=== PATIENT | male | born 1960 | race Caucasian/White ===

== ENCOUNTER 2023-03-31 19:57 | Emergency (ER) | payer OTHER, SELFPAY ==
--- NOTE | 2023-03-31 19:58 | XRR_ITS ---
PROCEDURE INFORMATION: Exam: XR Chest Exam date and time: 03/31/2023 8:22 PM Age: 63 years old Clinical indication: Pain; Chest pressure; Additional info: Cbc TECHNIQUE: Imaging protocol: Radiologic exam of the chest. Views: 1 view. COMPARISON: No relevant prior studies available. FINDINGS: Lungs: Lungs are clear bilaterally. Pleural spaces: No pleural effusion. No pneumothorax. Heart/Mediastinum: The cardiac silhouette is mildly enlarged. Mediastinal contours are unremarkable. Vasculature: Vascular calcifications in the aorta. Bones/joints: Unremarkable for age. XR/XR chest 1V portable [id number] IMPRESSION: 1. No acute cardiopulmonary process. 2. Incidental/nonacute findings are listed in the report.
--- NOTE | 2023-03-31 19:59 | ECG_ITS ---
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 Measurements Intervals [place] Rate: 63 P: 44 MT: 122 QRS: 47 QRSD: 110 T: 55 QT: 423 QTc: 436 Interpretive Statements SINUS RHYTHM No previous ECG available for comparison Electronically Signed On 03-31-2023 20:36:55 CDT by Cal Zhang M.D. [id number]
[2023-03-31 20:10] VITALS: BP 135/86; PULSE 64; RESP 18; TEMP 37.1; O2SAT 99; BMI 28.5
--- NOTE | 2023-03-31 20:28 | W.ED.CHESTPA ---
HPI - Chest Pain General: Chief Complaint: Chest Pain Stated Complaint: CHEST PAIN Time Seen by Provider: 03/31/23 20:09 Source: patient and EMS Mode of arrival: EMS Limitations: no limitations History of Present Illness: 63-year-old male has extensive history of coronary artery disease he states he had a cath 3 years ago showed blockage she had no stents done at that point but he has not followed up he is a truck supervisor he states that this afternoon he started having chest pain as pressure type pain along with some shortness of breath he is having some tingling in his arms. He is given nitro in route his chest pains improved to 2 out of 10 currently. Had no vomiting no diarrhea his vital signs here are all normal he states he was hypertensive before the nitro. Associated symptoms: Reports dyspnea; Deny abdominal pain, fever(s), nausea or vomiting Review of Systems Const: Denies: fever(s) or chills Eyes: Denies: eye discomfort ENMT: Denies: throat pain or dental pain Card: Reports: chest pain Resp: Reports: dyspnea GI: Denies: abdominal pain, nausea, vomiting or diarrhea : Denies: dysuria Musc: Denies: neck pain or back pain Skin/Breast: Denies: rash Neuro: Denies: headache(s) Physical Exam Const: COMMON NORMALS: patient oriented x3 HENMT: COMMON NORMALS: normocephalic and atraumatic HEAD & SCALP: normocephalic and atraumatic Eye: COMMON NORMALS: Equal, round and reactive pupils present and EOMs intact bilaterally PUPIL: Yes Equal, round and reactive pupils present Neck/C-Spine: COMMON NORMALS: full ROM and supple Chest: COMMONS NORMALS: normal inspection of the chest and normal palpation of entire chest wall Resp: COMMON NORMALS: normal respiratory effort, No retractions, No use of accessory muscles and clear to auscultation bilaterally AUSCULTATION: clear to auscultation bilaterally Cardio: COMMON NORMALS: regular rate, regular rhythm and No murmurs present (Cardio) RATE: regular rate RHYTHM: regular rhythm GI: COMMON NORMALS: Normal to inspection, nondistended, normoactive bowel sounds present, Soft to palpation, non-tender and no masses PALPATION: Yes Soft to palpation Extremity: COMMON NORMALS: normal to inspection and full ROM Neuro: COMMON NORMALS: patient oriented x3, moves all extremities and no focal motor deficits Psych: COMMON NORMALS: mental status grossly normal, Normal thought process present and cooperative THOUGHT PROCESS: Normal thought process present Skin: COMMON NORMALS: no rashes or lesions noted and no wounds GENERAL SKIN EXAM: no rashes or lesions noted Course Vital Signs: Vital signs: Vital Signs Temperature 98.7 F 03/31/23 20:10 Pulse Rate 64 03/31/23 20:10 Respiratory Rate 18 03/31/23 20:10 Blood Pressure 135/86 03/31/23 20:10 Pulse Oximetry 99 03/31/23 20:10 Oxygen Delivery Me thod Room Air 03/31/23 20:10 MDM - Chest Pain Medical Decision Making Patient presents for chest pain his initial repeat troponin here normal his D-dimer is negative as well. States he is also eating something at a truck stop and he is having some epigastric pain after that as well and thought it could be indigestion his pain since is resolved. 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 Medical Records I reviewed the patient's medical records. Lab Data I reviewed the patient's lab results. 03/31/23 20:45 03/31/23 20:45 Radiology Impressions Chest X-Ray 03/31/23 19:58 IMPRESSION: 1. No acute cardiopulmonary process. 2. Incidental/nonacute findings are listed in the report. Laboratory Results WBC 8.12 10^3/uL (3.29-11.43) 03/31/23 20:45 RBC 4.59 10^6/uL (3.85-5.65) 03/31/23 20:45 Hgb 13.30 g/dL (11.27-16.99) 03/31/23 20:45 Hct 38.2 % (37-53) 03/31/23 20:45 MCV 83.2 fl (82-101) 03/31/23 20:45 MCH 29.0 pg (27-33) 03/31/23 20:45 MCHC 34.8 g/dL (30-55) 03/31/23 20:45 RDW 12.4 % (12.1-15.1) 03/31/23 20:45 Plt Count 201 10^3/cmm (157-399) 03/31/23 20:45 MPV 10.7 fL (7.4-10.4) H 03/31/23 20:45 Neut % (Auto) 74.8 % 03/31/23 20:45 Lymph % (Auto) 18.7 % 03/31/23 20:45 [place] % (Auto) 5.3 % 03/31/23 20:45 Eos % (Auto) 0.2 % 03/31/23 20:45 Baso % (Auto) 0.6 % 03/31/23 20:45 Neut # (Auto) 6.07 10^3/uL (1.8-7.7) 03/31/23 20:45 Lymph # (Auto) 1.5 10^3/uL (0.8-4.8) 03/31/23 20:45 [place] # (Auto) 0.4 10^3/uL (0.2-0.9) 03/31/23 20:45 Eos # (Auto) 0.0 10^3/uL (0.0-0.8) 03/31/23 20:45 Baso # (Auto) 0.1 10^3/uL (0.0-0.1) 03/31/23 20:45 Nucleated RBC % (auto) 0 % 03/31/23 20:45 Nucleated RBCs # 0.0 /100WBC 03/31/23 20:45 PT 13.30 SECONDS (12.1-14.9) 03/31/23 20:45 INR 0.98 (0.8-1.2) 03/31/23 20:45 D-Dimer <= 0.27 ug/mLFEU (0-0.59) 03/31/23 20:45 Sodium 131 mmol/L (136-145) L 03/31/23 20:45 Potassium 3.9 mmol/L (3.5-5.1) 03/31/23 20:45 Chloride 97 mmol/L (98-107) L 03/31/23 20:45 Carbon Dioxide 23 mmol/L (22-29) 03/31/23 20:45 Anion Gap 14.9 (5-19) 03/31/23 20:45 BUN 13 mg/dL (8-23) 03/31/23 20:45 Creatinine 0.8 mg/dL (0.7-1.2) 03/31/23 20:45 GFR Calculation 97.6 mL/min (90-130) 03/31/23 20:45 Glucose 104 mg/dL (65-115) 03/31/23 20:45 Calculated Osmolality 272 mOsm/kg (285-295) L 03/31/23 20:45 Calcium 8.8 mg/dL (8.5-10.5) 03/31/23 20:45 Total Bilirubin 0.8 mg/dL (0.15-1.2) 03/31/23 20:45 AST 18 U/L (0-40) 03/31/23 20:45 ALT 14 U/L (0-41) 03/31/23 20:45 Alkaline Phosphatase 91 U/L (40-130) 03/31/23 20:45 Troponin T Baseline 10 ng/L (0-15) 03/31/23 20:45 Troponin T 120 Minute 7.63 ng/L (0-15) 03/31/23 22:49 Delta Troponin T -2.37 ABS# (0-10) L 03/31/23 22:49 Total Protein 6.7 g/dL (6.6-8.7) 03/31/23 20:45 Albumin 4.4 g/dL (3.5-5.2) 03/31/23 20:45 Globulin 2.3 g/dL (1.3-4.6) 03/31/23 20:45 Lipase 18 U/L (13-60) 03/31/23 20:45 EKG Data EKG 1: I personally reviewed and interpreted this EKG as follows: EKG interpretation date: 03/31/23 EKG interpretation time: 20:30 Interpretation: nsr hr [address] or t wave abnormalities qrs 110 qtc 431 Discharge Plan Discharge Patient Disposition: Home Clinical Impression: Chest pain Condition: Stable Discharge Orders: Discharge ED (Routine); Ordered 03/31/23 Ordered By: Maryellen Plummer Discharge Diet: Advance as tolerated Discharge Activity: Resume usual activity Patient Instructions: Chest Pain (ED) Coding Level of Care Code ED Hot Room Attendant for Ashley Thomas
[2023-03-31 20:54] LABS: Basophils # 0.1 10^3/uL (0.0-0.1); Basophils % 0.6 %; Eosinophils % 0.2 %; Hematocrit 38.2 % (37-53); Lymphocytes # 1.5 10^3/uL (0.8-4.8); Lymphocytes % 18.7 %; Mean Corpuscular HGB Conc 34.8 g/dL (30-55); Mean Corpuscular Volume 83.2 fl (82-101); Mean Platelet Volume 10.7 fL (7.4-10.4); Monocytes # 0.4 10^3/uL (0.2-0.9); Monocytes % 5.3 %; Neutrophils # 6.07 10^3/uL (1.8-7.7); Neutrophils % 74.8 %; Nucleated Red Blood Cells % 0 %; Platelet Count 201 10^3/cmm (157-399); Red Blood Count 4.59 10^6/uL (3.85-5.65); Red Cell Distribution Width 12.4 % (12.1-15.1); White Blood Count 8.12 10^3/uL (3.29-11.43)
[2023-03-31 21:11] LABS: INR 0.98 (0.8-1.2)
[2023-03-31 21:14] LABS: D Dimer <= 0.27 ug/mLFEU (0-0.59)
[2023-03-31 21:17] LABS: Troponin(5th) Baseline 10 ng/L (0-15)
[2023-03-31 21:19] LABS: Alanine Aminotransferase 14 U/L (0-41); Albumin Level 4.4 g/dL (3.5-5.2); Alkaline Phosphatase 91 U/L (40-130); Anion Gap 14.9 (5-19); Aspartate Amino Transferase 18 U/L (0-40); Blood Urea Nitrogen 13 mg/dL (8-23); Calcium 8.8 mg/dL (8.5-10.5); Carbon Dioxide 23 mmol/L (22-29); Chloride 97 mmol/L (98-107); Creatinine Clr Calc Pharmacy 110.1186; Globulin 2.3 g/dL (1.3-4.6); Glomerular Filtration Rate 97.6 mL/min (90-130); Glucose 104 mg/dL (65-115); Lipase 18 U/L (13-60); Osmolality Calculated 272 mOsm/kg (285-295); Potassium 3.9 mmol/L (3.5-5.1); Sodium 131 mmol/L (136-145); Total Bilirubin 0.8 mg/dL (0.15-1.2); Total Protein 6.7 g/dL (6.6-8.7)
--- NOTE | 2023-03-31 21:54 | ECG_ITS ---
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 Measurements Intervals [place] Rate: 56 P: 56 [place]: 160 QRS: 38 QRSD: 110 T: 39 QT: 421 QTc: 410 Interpretive Statements SINUS BRADYCARDIA Compared to ECG 03/31/2023 20:30:05 Sinus rhythm no longer present Electronically Signed On 04-02-2023 0:01:55 CDT by Dania Hill M.D. [id number]
[2023-03-31 23:12] LABS: Troponin 5 2HR 7.63 ng/L (0-15); Troponin 5 2HR Delta -2.37 ABS# (0-10)
== END 2023-03-31 23:42 | disposition home or self-care (01) ==
PROVIDERS: Emergency Provider Emergency Medicine
DX: R07.9 Chest pain, unspecified (principal)
CPT/HCPCS: 36415; 71045; 80053; 83690; 84484; 85025; 85378; 85610; 93005; 99285